=== PATIENT | male | born 1945 | race Caucasian/White ===

== ENCOUNTER → 2023-10-05 08:09 | Outpatient (REF) | payer OTHER, SELFPAY | LOC: HWRAD 08:09 | PROVIDERS: ATTENDING PHYSICIAN Nurse Practitioner; FAMILY PHYSICIAN Internal Medicine | DX: K76.0 Fatty (change of) liver, not elsewhere classified (principal) | CPT/HCPCS: 76700 ==

== ENCOUNTER → 2023-12-21 11:34 | Outpatient (REF) | payer OTHER, SELFPAY | LOC: RAD 11:34 | PROVIDERS: ATTENDING PHYSICIAN Nurse Practitioner Family; FAMILY PHYSICIAN Internal Medicine | DX: R09.89 Other specified symptoms and signs involving the circulatory and respiratory systems (principal) | CPT/HCPCS: 71046 ==

== ENCOUNTER → 2024-12-16 06:35 | Outpatient (REF) | payer OTHER, SELFPAY | LOC: MRI 3T 06:35 | PROVIDERS: ATTENDING PHYSICIAN Psychiatry & Neurology Neurology | DX: M54.12 Radiculopathy, cervical region (principal); M54.16 Radiculopathy, lumbar region | CPT/HCPCS: 72141; 72148 ==

== ENCOUNTER → 2025-01-30 14:45 | Outpatient (REF) | payer OTHER, SELFPAY | LOC: EMG 14:45 | PROVIDERS: ATTENDING PHYSICIAN Psychiatry & Neurology Neurology; FAMILY PHYSICIAN Internal Medicine | DX: M54.10 Radiculopathy, site unspecified (principal); R20.0 Anesthesia of skin | CPT/HCPCS: 95886; 95910 ==